=== PATIENT | female | born 1985 | race Caucasian/White ===

== ENCOUNTER 2018-06-17 19:53 | Outpatient (CLI) | END 2018-06-18 00:41 | disposition home or self-care (01) ==

== ENCOUNTER 2018-07-16 15:19 | Outpatient (CLI) | END 2018-07-16 20:40 | disposition home or self-care (01) ==

== ENCOUNTER 2018-07-26 09:51 | Inpatient (IN) | END 2018-07-28 12:00 | disposition home or self-care (01) | DRG 807 ==

== ENCOUNTER 2019-07-09 02:50 | Inpatient (IN) | payer BC ==
[~2019-07-09] VITALS: Ht 152.4 cm; Wt 103.2 kg
[~2019-07-09 02:50] MED LIST: FERR134T PO; PREN-19 PO
[2019-07-09] MEDS ORDERED: LACTATED RINGER'S 1,000 ML IV PRN (03:21)
[2019-07-09] MEDS ORDERED: LACTATED RINGER'S 1,000 ML IV SCH (03:21)
[2019-07-09] MEDS ORDERED: OXYTOCIN 30 UNITS/LR 500 ML IV SCH ×2 (03:30)
[2019-07-09] MEDS ORDERED: CARBOPROST 250 MCG INJ IM PRN ×2 (03:30→07:00)
[2019-07-09] MEDS ORDERED: LIDOCAINE 1% (MPF) 30 ML INJ INJ PRN (03:30)
[2019-07-09] MEDS ORDERED: IBUPROFEN 600 MG TAB PO PRN (03:30)
[2019-07-09] MEDS ORDERED: MISOPROSTOL 200 MCG TAB PR PRN ×2 (03:30→07:00)
[2019-07-09] MEDS ORDERED: OXYTOCIN 30 UNITS/LR 500 ML IV PRN ×2 (03:30→07:00)
[2019-07-09] MEDS ORDERED: MINERAL OIL LIGHT 10 ML VIAL TOP PRN (03:30)
[2019-07-09] MEDS ORDERED: METHYLERGONOVINE 0.2 MG INJ IM PRN ×2 (03:30→07:00)
[2019-07-09] MEDS ORDERED: BUTORPHANOL 2 MG INJ IV PRN ×2 (03:30)
[2019-07-09] MEDS ORDERED: WITCH HAZEL/GLYCERIN PAD PR PRN (07:00)
[2019-07-09] MEDS ORDERED: LANOLIN HPA 1 PKT TOP PRN (07:00)
[2019-07-09] MEDS ORDERED: ZOLPIDEM 5 MG TAB PO PRN (07:00)
[2019-07-09] MEDS ORDERED: OXYCODONE/ASPIRIN (4.88/325) TAB PO PRN (07:00)
[2019-07-09] MEDS ORDERED: BENZOCAINE 20% 56 ML SPRAY TOP PRN (07:00)
[2019-07-09 08:00] VITALS: BP 113/60; PULSE 77; RESP 18
[2019-07-09] MEDS: IBUPROFEN 600 MG TAB PO SCH ×3 (08:17→18:36)
[2019-07-09] MEDS: SENNA/DOCUSATE NA (8.6MG/50MG) TAB PO SCH (08:36)
[2019-07-09 12:32] VITALS: BP 118/68; PULSE 70; RESP 18
[2019-07-09] MEDS: OXYCODONE/ASPIRIN (4.88/325) TAB PO PRN (15:46)
[2019-07-09 20:00] VITALS: BP 103/56; PULSE 92; RESP 20
[2019-07-10] MEDS: SENNA/DOCUSATE NA (8.6MG/50MG) TAB PO SCH ×2 (00:38→09:06)
[2019-07-10] MEDS: IBUPROFEN 600 MG TAB PO SCH ×4 (00:38→17:37)
[2019-07-10 05:05] VITALS: BP 121/71; PULSE 93; RESP 18
[2019-07-10 08:50] VITALS: BP 112/60; PULSE 90; RESP 18
[2019-07-10] MEDS: OXYCODONE/ASPIRIN (4.88/325) TAB PO PRN (14:30)
[2019-07-10 16:05] VITALS: BP 118/74; PULSE 83; RESP 18
[2019-07-10 20:00] VITALS: BP 125/75; PULSE 83; RESP 20
[2019-07-11] MEDS: SENNA/DOCUSATE NA (8.6MG/50MG) TAB PO SCH ×2 (00:11→09:22)
[2019-07-11] MEDS: IBUPROFEN 600 MG TAB PO SCH ×3 (00:11→12:00)
[2019-07-11 04:29] VITALS: BP 115/63; PULSE 73; RESP 20
[2019-07-11 08:30] VITALS: BP 117/75; PULSE 84; RESP 19
[2019-07-11] MEDS ORDERED: DIPHTH/TET/ACEL PERTUSS (ADULT) 0.5 ML VIAL IM* ONE (09:00)
== END 2019-07-11 13:58 | disposition home or self-care (01) | DRG 807 ==
LOC: OBT 02:50 → L-D 02:50 → OBT 03:09 → L-D 03:10 → PP1 14:40
PROVIDERS: ADMIT Obstetrics & Gynecology; ATTEND Obstetrics & Gynecology
PROC: 10E0XZZ Delivery of Products of Conception, External Approach (ICD-10-PCS; principal; 2019-07-09)
PROC: 0KQM0ZZ Repair Perineum Muscle, Open Approach (ICD-10-PCS; 2019-07-09)
PROC: 3E033VJ Introduction of Other Hormone into Peripheral Vein, Percutaneous Approach (ICD-10-PCS; 2019-07-09)
DX: O70.1 Second degree perineal laceration during delivery (principal); Z37.0 Single live birth; Z3A.39 39 weeks gestation of pregnancy
CPT/HCPCS: 85025; 85610; 85730; 86592; 86850; 86900; 86901; 87340; 90715; G0463; J0595; J2590; J7120